=== PATIENT | female | born 1945 | race Caucasian/White ===

== ENCOUNTER 2020-12-28 07:02 | Day surgery (SDC) | payer OTHER ==
[~2020-12-28] VITALS: Ht 149.9 cm; Wt 76.2 kg
[~2020-12-28 07:02] MED LIST: ALLO100T PO; AMLO-489 PO; CALCTAB49 PO; CHOL20007 PO; LISI-275 PO; MULT-927 PO; PRAV20TA3 PO
[2020-12-28] MEDS ORDERED: MIDAZOLAM HCL 1MG/1ML-2 ML VIAL IV ONE (08:30)
[2020-12-28] MEDS ORDERED: LIDOCAINE VISCOUS 2% 15ML UD MT ONE (08:30)
[2020-12-28] MEDS ORDERED: fentaNYL CITRATE 100 MCG/2 ML VL IV ONE (08:30)
[2020-12-28] MEDS ORDERED: ANGIOMAX 250 MG VIAL IV ONE (09:34)
[2020-12-28] MEDS ORDERED: SODIUM CHL 0.9% 0 ML ONE (09:34)
[2020-12-28] MEDS ORDERED: IODIXANOL 320MG/ML 100ML BTL IV ONE (09:34)
[2020-12-28] MEDS ORDERED: LIDOCAINE 2%HCL (LOCAL ANESTH.) INJ 20ML MDV ONE (09:35)
[2020-12-28] MEDS ORDERED: VERAPAMIL 2.5MG/ML INJ 2ML VIAL IV ONE (09:35)
[2020-12-28] MEDS ORDERED: diphenhdrAMINE HCL 50 MG/1 ML VL ONE (10:29)
[2020-12-28] MEDS ORDERED: ONDANSETRON HCL 4 MG/2 ML VIAL IV PRN (12:15)
[2020-12-28] MEDS ORDERED: ACETAMINOPHEN 500 MG TAB PO PRN (12:15)
== END 2020-12-28 14:32 | disposition home or self-care (01) ==
LOC: CATH 07:02
PROVIDERS: ATTEND Internal Medicine
DX: I08.1 Rheumatic disorders of both mitral and tricuspid valves (principal); I25.10 Atherosclerotic heart disease of native coronary artery without angina pectoris; I10 Essential (primary) hypertension; E78.00 Pure hypercholesterolemia, unspecified; E66.01 Morbid (severe) obesity due to excess calories; Z95.2 Presence of prosthetic heart valve; Z87.891 Personal history of nicotine dependence; Z88.0 Allergy status to penicillin; Z68.33 Body mass index [BMI] 33.0-33.9, adult; Z20.822 Contact with and (suspected) exposure to COVID-19
CPT/HCPCS: 93005; 93312; 93458; C1760; C1894; J1200; J1644; J2250; J3010; Q9967; U0003; 99152; 99153